=== PATIENT | male | born 1965 | race Hispanic/Latino ===

== ENCOUNTER 2017-11-18 12:07 | Emergency (ER) | payer OTHER ==
[2017-11-18] MEDS: IBUPROFEN 600 MG TAB PO (15:15)
== END 2017-11-18 17:10 | disposition home or self-care (01) ==
LOC: M ED 12:07
DX: S93.402A Sprain of unspecified ligament of left ankle, initial encounter (principal); W00.9XXA Unspecified fall due to ice and snow, initial encounter; Y92.9 Unspecified place or not applicable; Y93.9 Activity, unspecified; Y99.0 Civilian activity done for income or pay
CPT/HCPCS: 73610

== ENCOUNTER → 2020-10-07 | Outpatient (CLI) | payer SELFPAY | LOC: M LABSMTC 09:43 | PROVIDERS: ATTEND Pediatrics | DX: Z20.828 Contact with and (suspected) exposure to other viral communicable diseases (principal) ==

== ENCOUNTER → 2021-09-27 | Emergency (ER) | payer SELFPAY ==
[~2021-09-27] VITALS: Ht 165.1 cm; Wt 84.5 kg
[2021-09-27 19:26] VITALS: BP 193/88
== END | disposition left against medical advice (07) ==
LOC: M ED 19:25
DX: Z53.21 Procedure and treatment not carried out due to patient leaving prior to being seen by health care provider (principal)